=== PATIENT | female | born 1990 | race Caucasian/White ===

== ENCOUNTER 2019-11-07 20:52 | Inpatient (IN) | payer OTHER, SELFPAY ==
[2019-11-07 21:53] VITALS: BMI 23.8
[2019-11-07] MEDS: MISOPROSTOL 100 MCG TABLET PO (21:54)
[2019-11-07 21:56] LABS: Basophils Percent Auto 0.2 % (0.2-1.2); Eosinophils Absolute Auto 0.1 K/mm3 (0-0.3); Eosinophils Percent Auto 0.5 % (0-4.4); Hematocrit 35.4 % (37.0-47.0); Hemoglobin 11.7 g/dL (12.0-15.0); Immature Granulocyte Absolute 0.02 K/mm3 (0.00-0.031); Immature Granulocyte Percent A 0.2 % (0-0.5); Lymphocytes Absolute Auto 3.25 K/mm3 (0.9-3.2); Mean Corpuscular HGB Conc 33.1 g/dl (32-36); Mean Corpuscular Hemoglobin 28.7 pg (26-34); Mean Platelet Volume 10.7 fl (7.4-10.4); Monocytes Absolute Auto 0.5 K/mm3 (0.1-0.6); Monocytes Percent Auto 5.5 % (2.6-8.5); Neutrophils Absolute Auto 5.4 K/mm3 (1.3-6.7); Neutrophils Percent Auto 58.6 % (45.5-73.1); Platelet Count Result 237 k/mm3 (150-375); Red Blood Count 4.07 M/mm3 (4.2-5.4); Red Cell Distribution Width 13.2 % (11.5-14.5); White Blood Count 9.3 K/mm3 (4.5-10.0)
[2019-11-07 22:12] VITALS: BP 110/67; PULSE 71
[2019-11-07 22:30] VITALS: BP 110/71; PULSE 67
[2019-11-07 22:58] LABS: Free T4 Free Thyroxine 0.95 ng/mL (0.78-2.19)
[2019-11-07 23:00] VITALS: BP 109/59; PULSE 66
[2019-11-07 23:10] VITALS: TEMP 36.5
[2019-11-07 23:30] VITALS: BP 100/57; PULSE 63
[2019-11-08] VITALS (48 sets, daily range): BP systolic 76–132; BP diastolic 29–81; PULSE 59–91; TEMP 36.6–36.8
--- NOTE | 2019-11-08 00:14 | PM.IMHP ---
H&P: HPI History of Present Illness Chief complaint: Intrauterine demise Narrative: 29 y/o at 18w5d with complicated by likely monosomy X, cystic hygroma, hydrops. Today was seen for routine visit, but no FHR detected on ultrasound exam. IUFD diagnosed. She is here for induction of labor. LMP 06/29/2019 giving a due date of 04/04/20. Review of Systems Review of Systems: All systems reviewed & are unremarkable except as noted in HPI and below PMFSH Past Medical History Medical History (Updated 11/08/19 @ 00:24 by Thai Cisse MD) depression Family History Family History (Updated 11/08/19 @ 00:21 by Thai Cisse MD) Father A[place] disease Social History Social History Smoking status: Never smoker Substance use: never Gender identity (if verbalized by the patient): Female Spiritual care concerns: No Comments Past OB: male weighing 7#14oz at term. 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 No history of STI or abnormal Pap. Meds Home Medications and Allergies Home Medications Medication Instructions Recorded Confirmed Type fluoxetine 10 mg PO DAILY 11/07/19 11/07/19 History Allergies Allergy/AdvReac Type Severity Reaction Status Date / Time No Known Allergies Allergy Unverified 01/02/17 15:42 Vital Signs Vital Signs - 24 hr 11/07/19 22:12 11/07/19 22:30 11/07/19 23:00 Temperature Pulse Rate 71 67 66 Blood Pressure 110/67 110/71 109/59 L 11/07/19 23:10 11/07/19 23:30 11/08/19 00:00 Temperature 36.5 C Pulse Rate 63 71 Blood Pressure 100/57 L 99/49 L Exam Const: Orientation/consciousness: patient oriented x3 Other: Well-developed, well-nourished female in no acute distress. Neck: Thyroid: thyroid normal Lymphatic: no lymphadenopathy noted (in neck, axilla or inguinal nodes) Resp: Effort & Inspection: normal respiratory effort Auscultation: clear to auscultation bilaterally Cardio: Rate: regular rate Rhythm: regular rhythm Heart sounds: S1 normal heart sound present and S2 normal heart sound present GI: Other: ABD: Soft, nontender, nondistended. Gravid. Uterine fundus below umbilicus. No guarding or rebound tenderness. No hepatosplenomegaly. : General: Yes no CVA tenderness Other: Cervix closed, thick. Back/Spine/Pelvis: Back: no CVA tenderness Skin: General skin exam: normal color and no rashes or lesions noted Neuro: General: patient oriented x3 Extrem: Other: Extremities: nontender with no edema Psych: Mental Status: mental status grossly normal Affect: normal affect H&P: Results Labs Labs: Short CBC 11/07/19 Range/Units 21:49 WBC 9.3 (4.5-10.0) K/mm3 Hgb 11.7 L (12.0-15.0) g/dL Hct 35.4 L (37.0-47.0) % Plt Count 237 (150-375) k/mm3 Assessment and Plan Assessment and plan (1) Depression affecting : Code(s): O99.340 - Other mental disorders complicating , unspecified trimester; F32.9 - Major depressive disorder, single episode, unspecified Status: Acute (2) anomaly: Status: Acute (3) IUFD at less than 20 weeks of gestation: Code(s): O02.1 - Missed Status: Acute Assessment and Plan: Have offered expectant management vs induction of labor. Reviewed risks / benefits / alternatives in detail. She would like to proceed with induction. Plan misoprostol. (4) Hydrops fetalis in second trimester: Code(s): O36.22X0 - Maternal care for hydrops fetalis, second trimester, not applicable or unspecified Status: Acute (5) cystic hygroma: Status: Acute
[2019-11-08] MEDS: MISOPROSTOL 100 MCG TABLET PO ×2 (03:33→09:36)
[2019-11-08 06:58] LABS: Rapid Plasma Reagin Non-Reactive (NonReactive)
[2019-11-08] MEDS: MISOPROSTOL 100 MCG TABLET XX (13:53)
--- NOTE | 2019-11-08 14:23 | PM.OBPNLAB ---
Pain Control Date/time seen: 11/08/19 1320 Comments: Starting to feel some cramping. Pelvic Exam Dilation (cm): 2 Effacement (%): 50 station: -2 Comments: AROM with brown-colored fluid. Assessment and Plan Comments: Continue misoprostol
[2019-11-08] MEDS: LACTATED RINGERS 1,000 ML 125 ML IV CONT (18:34)
[2019-11-08] MEDS: OXYTOCIN 30 UNITS/NS 500 ML 30 UNITS/500 ML BAG 125 UNITS IV CONT (18:34)
--- NOTE | 2019-11-08 19:31 | PM.OBPRVD ---
OB - Delivery Note Procedure Delivery date: 11/08/19 Procedure: Induction of labor with 18 week IUFD Spontaneous delivery of placenta Bedside ultrasound exam to confirm complete delivery of placenta Induction method: per misoprostol protocol Route of delivery: Laceration description: None Estimated blood loss (mL): 100 Anesthesia type: None Disposition: PACU Complications: None Narrative: 29 y/o at 18 5/7 weeks gestation with IUFD, probable monosomy X, who presented to the hospital for induction of labor. Misoprostol was administered vaginally. Amniotomy was performed with return of brown fluid. Her labor progressed and she delivered vaginally. The stillborn infant was globally edematous with an apparent cystic hygroma. The cord was clamped and cut. The was handed off the field. Weight was 122g. The placenta delivered spontaneously and appeared to be intact. Bedside ultrasound exam performed transabdominally by me confirmed an empty endometrial cavity. There were no lacerations. Needle and instrument counts were correct. The patient was taken to recovery room in stable condition. Baby Date of : 11/08/19 Time of : 18:49 Weeks of gestation at delivery: 18 gender: Female Weight (ounces): 4 Placenta delivery description: Spontaneous score one minute: 0 score five minutes: 0
--- NOTE | 2019-11-08 19:38 | PM.OBDSVD ---
DS: Diagnosis Admitting Diagnosis Admitting Diagnosis: IUFD at 18 weeks with likely monosomy X. Discharge Diagnosis (1) cystic hygroma: Status: Acute (2) anomaly: Status: Acute (3) IUFD at less than 20 weeks of gestation: Code(s): O02.1 - Missed Status: Acute (4) Hydrops fetalis in second trimester: Code(s): O36.22X0 - Maternal care for hydrops fetalis, second trimester, not applicable or unspecified Status: Acute OB - DS: Summary OB Procedures : None OB Procedures Intrapartum: Spontaneous Vag Delivery OB Procedures: : None Time Spent with Patient Time attestation: Total time spent providing and/or coordinating discharge services: DS: Data Data Completed and Pending Labs on day of discharge: Labs from last 24 hours 11/07/19 11/07/19 11/07/19 21:49 21:49 21:49 WBC RBC Hgb Hct MCV MCH MCHC RDW Plt Count MPV Immature Gran % (Auto) Neut % (Auto) Lymph % (Auto) [place] % (Auto) Eos % (Auto) Baso % (Auto) Lymph # (Auto) [place] # (Auto) Eos # (Auto) Baso # (Auto) Abs Immat Gran (auto) Absolute Neuts (auto) Absolute Nucleated RBC Nucleated RBC % LA PTT Screen dRVVT Screen dRVVT Additional Test Lupus Anticoag Interp TSH Free T4 Beta-2-GPI IgG Ab Pending Beta-2-GPI IgA Ab Pending Beta-2-GPI IgM Ab Pending Anti-Cardiolipin IgG Ab Anti-Cardiolipin IgA Ab Anti-Cardiolipin IgM Ab RPR Non-reactive CMV IgG Ab Pending CMV IgM Ab Pending Blood Type B Positive KB Hemoglobin Negative 11/07/19 11/07/19 11/07/19 21:49 21:49 21:49 WBC RBC Hgb Hct MCV MCH MCHC RDW Plt Count MPV Immature Gran % (Auto) Neut % (Auto) Lymph % (Auto) [place] % (Auto) Eos % (Auto) Baso % (Auto) Lymph # (Auto) [place] # (Auto) Eos # (Auto) Baso # (Auto) Abs Immat Gran (auto) Absolute Neuts (auto) Absolute Nucleated RBC Nucleated RBC % LA PTT Screen dRVVT Screen dRVVT Additional Test Lupus Anticoag Interp TSH 2.490 Free T4 0.95 Beta-2-GPI IgG Ab Beta-2-GPI IgA Ab Beta-2-GPI IgM Ab Anti-Cardiolipin IgG Ab Pending Anti-Cardiolipin IgA Ab Pending Anti-Cardiolipin IgM Ab Pending RPR CMV IgG Ab CMV IgM Ab Blood Type KB Hemoglobin 11/07/19 11/07/19 21:49 21:49 WBC 9.3 RBC 4.07 L Hgb 11.7 L Hct 35.4 L MCV 87.0 MCH 28.7 MCHC 33.1 RDW 13.2 Plt Count 237 MPV 10.7 H Immature Gran % (Auto) 0.2 Neut % (Auto) 58.6 Lymph % (Auto) 35.0 [place] % (Auto) 5.5 Eos % (Auto) 0.5 Baso % (Auto) 0.2 Lymph # (Auto) 3.25 H [place] # (Auto) 0.5 Eos # (Auto) 0.1 Baso # (Auto) 0.0 Abs Immat Gran (auto) 0.02 Absolute Neuts (auto) 5.4 Absolute Nucleated RBC 0.0 Nucleated RBC % 0.0 LA PTT Screen Pending dRVVT Screen Pending dRVVT Additional Test Pending Lupus Anticoag Interp Pending TSH Free T4 Beta-2-GPI IgG Ab Beta-2-GPI IgA Ab Beta-2-GPI IgM Ab Anti-Cardiolipin IgG Ab Anti-Cardiolipin IgA Ab Anti-Cardiolipin IgM Ab RPR CMV IgG Ab CMV IgM Ab Blood Type KB Hemoglobin Discharge Plan Discharge Attending physician on discharge: Thai Cisse Discharging Clinician: Thai Cisse Patient Disposition: Home, Self-Care Activity: pelvic rest Diet: regular Discharge Instructions: Call or return if temperature above 100.4? F, increased abdominal pain, increased vaginal bleeding or any new problems. Stand Alone Forms: General Discharge Information Follow-up/Referrals: Thai Cisse MD [Physician] - (2 weeks) Discharge Medications: New ibuprofen 600 mg tablet 600 mg PO Q6H PRN (Reason: cramps) Qty: 30 RF: 0 zolpidem [Ambien] 5 mg tablet 5 mg PO HS PRN (Reason:
[2019-11-08] MEDS: IBUPROFEN 600 MG TABLET PO (20:13)
[2019-11-11 04:51] LABS: Anti Cardio Antibody IgM <12 MPL (<=12); Anti Cardiolipin Antibody IgA <11 APL (<=11); Anti Cardiolipin Antibody IgG <14 GPL (<=14)
[2019-11-11 14:04] LABS: CMV IgG Antibody <0.60 U/mL (<0.60)
[2019-11-14 09:09] LABS: CMV IgM Antibody <30.00 AU/mL (<30.00)
== END 2019-11-08 22:15 | disposition home or self-care (01) | DRG 779 ==
PROVIDERS: Admitting Provider Obstetrics & Gynecology; PCP Family Medicine; Visit Provider Obstetrics & Gynecology
DX: O02.1 Missed abortion (principal); Z3A.18 18 weeks gestation of pregnancy; O36.22X0 Maternal care for hydrops fetalis, second trimester, not applicable or unspecified; O35.8XX0 Maternal care for other (suspected) fetal abnormality and damage, not applicable or unspecified; O35.1XX0 Maternal care for (suspected) chromosomal abnormality in fetus, not applicable or unspecified; O99.344 Other mental disorders complicating childbirth; F32.9 Major depressive disorder, single episode, unspecified
CPT/HCPCS: 36415; 84439; 84443; 85025; 85460; 85613; 85730; 86146; 86147; 86592; 86644; 86645; 86900; 86901; 88305; 88307; A9270; J2590; J3010; J7120

== ENCOUNTER 2020-09-27 14:52 | Outpatient (RCR) | payer OTHER, SELFPAY ==
[2020-09-11 16:27] VITALS: BP 114/72; PULSE 85
[2020-09-27 15:19] VITALS: BP 121/80; PULSE 92
== END 2020-10-04 08:10 | disposition home or self-care (01) ==
LOC: ANHOBOP 14:52
PROVIDERS: PCP Family Medicine; Visit Provider Obstetrics & Gynecology
DX: O35.8XX0 Maternal care for other (suspected) fetal abnormality and damage, not applicable or unspecified (principal); Z3A.36 36 weeks gestation of pregnancy; Z3A.38 38 weeks gestation of pregnancy
CPT/HCPCS: 59025

== ENCOUNTER 2020-09-30 01:56 | Inpatient (IN) | payer OTHER, SELFPAY ==
[2020-09-30] VITALS (40 sets, daily range): BP systolic 80–144; BP diastolic 47–95; PULSE 70–113; RESP 16–18; TEMP 36.4–37.1; O2SAT 97–100; BMI 27.5
--- NOTE | 2020-09-30 02:34 | LDADM ---
This patient, Marisabel Levine, was admitted to Labor/Delivery/Recovery 104 on 09/30/20 at 01:56. Plans for labor, pain management and were discussed with patient. Patient/family oriented to hospital policies and general routines including ID bracelet, bed and alarms, visiting hours, pain management, procedures, bathroom and other care routines, personal items, smoking policy, room service/diet and guest tray routines, security routines, and visiting hours. Patient/Family are encouraged to report perceived risks to care and to ask questions if they do not understand what they are told or what they should do. See OBIX for further documentation.
[2020-09-30 02:37] LABS: Basophils Percent Auto 0.2 % (0.2-1.2); Eosinophils Percent Auto 0.2 % (0-4.4); Hematocrit 35.7 % (37.0-47.0); Hemoglobin 11.5 g/dL (12.0-15.0); Immature Granulocyte Percent A 0.6 % (0-0.5); Lymphocytes Percent Auto 20.7 % (18.3-44.2); Mean Corpuscular HGB Conc 32.2 g/dl (32-36); Mean Corpuscular Hemoglobin 28.1 pg (26-34); Mean Corpuscular Volume 87.3 fl (80-100); Monocytes Absolute Auto 0.9 K/mm3 (0.1-0.6); Monocytes Percent Auto 5.2 % (2.6-8.5); Neutrophils Percent Auto 73.1 % (45.5-73.1); Platelet Count Result 294 k/mm3 (150-375); Red Blood Count 4.09 M/mm3 (4.2-5.4); Red Cell Distribution Width 14.6 % (11.5-14.5); White Blood Count 16.4 K/mm3 (4.5-10.0)
--- NOTE | 2020-09-30 03:04 | WPDANESEPPF ---
Anes - Initial Pre Proc Eval Procedure: labor epidural Date/Time: 09/30/20 03:04 Surgeon: Thai Cisse MD Pre Op Diagnosis: labor pain Pre Op Diagnosis: CTX Patient Data Age: 30 Gender: F Height: 1.65 m Weight: 75 kg Last Vital Signs Pulse 89 09/30/20 03:03 BP 129/81 09/30/20 03:03 Pulse Ox 100 09/30/20 03:02 Allergies Allergy/AdvReac Type Severity Reaction Status Date / Time No Known Allergies Allergy Verified 09/11/20 15:54 Home Medications Medication Instructions Recorded Confirmed Type fluoxetine 10 mg PO DAILY 11/07/19 09/27/20 History prenat.vits,cherry,awy-vbap-rdqqd 1 tablet PO HS 09/11/20 09/27/20 History [ #2] Laboratory Tests 09/30/20 09/30/20 02:28 02:28 WBC 16.4 K/mm3 H K/mm3 (4.5-10.0) RBC 4.09 M/mm3 L M/mm3 (4.2-5.4) Hgb 11.5 g/dL L g/dL (12.0-15.0) Hct 35.7 % L % (37.0-47.0) MCV 87.3 fl fl (80-100) MCH 28.1 pg pg (26-34) MCHC 32.2 g/dl g/dl (32-36) RDW 14.6 % H % (11.5-14.5) Plt Count 294 k/mm3 k/mm3 (150-375) MPV 12.0 fl H fl (7.4-10.4) Immature Gran % (Auto) 0.6 % H % (0-0.5) Neut % (Auto) 73.1 % % (45.5-73.1) Lymph % (Auto) 20.7 % % (18.3-44.2) [place] % (Auto) 5.2 % % (2.6-8.5) Eos % (Auto) 0.2 % % (0-4.4) Baso % (Auto) 0.2 % % (0.2-1.2) Lymph # (Auto) 3.40 K/mm3 H K/mm3 (0.9-3.2) [place] # (Auto) 0.9 K/mm3 H K/mm3 (0.1-0.6) Eos # (Auto) 0.0 K/mm3 K/mm3 (0-0.3) Baso # (Auto) 0.0 K/mm3 K/mm3 (0.0-0.1) Abs Immat Gran (auto) 0.10 K/mm3 H K/mm3 (0.00-0.031) Absolute Neuts (auto) 12.0 K/mm3 H K/mm3 (1.3-6.7) Absolute Nucleated RBC 0.0 K/mm3 K/mm3 (0.0-0.012) Nucleated RBC % 0.0 % % (0.0-0.2) RPR Pending Patient hx anesthesia problems: none Family hx anesthesia problems: none [facility] Past Medical History Medical History (Updated 11/08/19 @ 00:24 by Thai Cisse MD) depression Family History Family History Father Hendricks disease Social History Social History Smoking status: Never smoker Substance use: never Gender identity (if verbalized by the patient): Female Spiritual care concerns: No Anes - Eval Final PreProcedure Day of Procedure 09/30/20 03:04 Patient weight: overweight ASA classification: II Anesthesia type and monitoring: regional epidural Informed Consent: The patient's anesthetic plan and its attendant risks and benefits were discussed with the patient/family/POA. Questions were solicited and answers provided to the satisfaction of the patient/family/POA.
[2020-09-30] MEDS: ONDANSETRON INJ 4 MG/2 ML VIAL IV PUSH (03:35)
--- NOTE | 2020-09-30 03:37 | WPDOBADMIT ---
Obstetrics - Admit Note Admission Note: record reviewed. Additions to the history and/or subsequent changes in the physical findings follow. 30 y/o at 39 1/7 weeks here with contractions. Now comfortable with epidural. GBS neg. AVSS NST reactive TOCO: contractions every 2-4 min ABD soft, nontender, gravid, vertex EXT nontender Cervix 6-7/80/-2. AROM with thinly meconium-stained fluid. Vertex A: IUP at term with labor. P: Anticipate . Thin meconium. Peds aware. Anticipate .
--- NOTE | 2020-09-30 05:07 | PM.OBPNLAB ---
Pain Control Date/time seen: 09/30/20 05:07 Comments: Comfortable. Pelvic Exam Dilation (cm): 10 Effacement (%): 100 station: +1 Contractions Contraction frequency: 3 Contraction pattern: Regular Status status: Category l Assessment and Plan Comments: Begin pushing.
--- NOTE | 2020-09-30 05:33 | P.PCNOB_ITS ---
OB - Delivery Note Procedure Delivery date: 09/30/20 Procedure: Induction method: none Delivery augmentation: rupture of membranes Delivery monitor: external FHT and external uterine Route of delivery: Laceration Description: Perineal - 2nd Degree Delivery repair: vicryl (3-0) Specimen: Yes (cord blood) Quantitative Blood Loss (ml): 240 Anesthesia type: Epidural Disposition: PACU Complications: None Narrative: 30 y/o at 39 1/7 weeks gestation who presented to the hospital with contractions. Cervix found to be 7 cm dilated. Labor was diagnosed. Amniotomy was performed with return of thinly meconium-stained fluid. She received an epidural for pain control. Her labor progressed and her cervix dilated completely. She pushed with good effort and delivered the infant's head to the perineum, followed by the body. The nose and mouth were bulb suctioned. After a delay, the cord was clamped and cut. The infant was handed off the field. Cord blood was collected. The placenta delivered spontaneously and was grossly normal in appearance. The usual 3 vessel cord was noted. A second degree midline perineal laceration was sustained. This was reapproximated using 3 0 Vicryl in the usual layered fashion. Excellent hemostasis resulted as did excellent reapproximation of the normal anatomy. Needle and instrument counts were correct. The patient was taken to recovery room in stable condition. The infant went to the nursery in stable condition. I was present and scrubbed for the entire delivery. [place] Baby Date of : 09/30/20 Time of : 05:12 Weeks of gestation at delivery: 39 Infant gender: Female Weight (pounds): 7 Weight (ounces): 7 presentation: vertex position: Right Occiput Anterior Placenta delivery description: Spontaneous and Normal Configuration cord vessel description: 3 Vessels and Delayed Cord Clamping score one minute: 9 score five minutes: 9
--- NOTE | 2020-09-30 05:35 | PM.OBDSVD ---
DS: Admitting Diagnosis Admitting Diagnosis Admitting Diagnosis: IUP at 39 1/7 weeks Labor DS: Discharge Diagnosis Discharge Diagnosis (1) (normal spontaneous vaginal delivery): Code(s): O80 - Encounter for full-term uncomplicated delivery Status: Acute OB - DS: Summary OB Procedures : None OB Procedures Intrapartum: Spontaneous Vag Delivery OB Procedures: : None Time Spent with Patient Time attestation: Total time spent providing and/or coordinating discharge services: DS: Data Data Completed and Pending Labs on day of discharge: Labs from last 24 hours 09/30/20 09/30/20 09/30/20 02:28 02:28 02:28 WBC 16.4 H RBC 4.09 L Hgb 11.5 L Hct 35.7 L MCV 87.3 MCH 28.1 MCHC 32.2 RDW 14.6 H Plt Count 294 MPV 12.0 H Immature Gran % (Auto) 0.6 H Neut % (Auto) 73.1 Lymph % (Auto) 20.7 [place] % (Auto) 5.2 Eos % (Auto) 0.2 Baso % (Auto) 0.2 Lymph # (Auto) 3.40 H [place] # (Auto) 0.9 H Eos # (Auto) 0.0 Baso # (Auto) 0.0 Abs Immat Gran (auto) 0.10 H Absolute Neuts (auto) 12.0 H Absolute Nucleated RBC 0.0 Nucleated RBC % 0.0 RPR Pending Blood Type B Positive Antibody Screen Negative Discharge Plan Discharge Attending physician on discharge: Thai Cisse Discharging Clinician: Thai Cisse Patient Disposition: Home, Self-Care Activity: pelvic rest Diet: regular Discharge Instructions: Call or return if temperature above 100.4? F, increased abdominal pain, increased vaginal bleeding or any new problems. Education: Mom and Baby Guide Given to: Mother Follow-Up: Call your delivering provider's office for an appointment to be seen in: 4 Weeks Mom and baby should come to the [facility] for the follow-up appointment. Appointment Date/Time: Friday, October 02, 2020 at 9:00 am What to expect at your follow-up visit: Blood Pressure Check Physical Assessment Call [phone] if you are unable to keep your appointment time. BREAST CARE: * For engorgement discomfort: Breast Feeding: * Apply warm moist washcloths * Express milk as needed to relieve engorgement * Wear loose clothing * For sore nipples: * Identify correct latch-on * Apply warm moist washcloths before and after nursing * Air dry nipples after nursing * May apply Lansinoh cream to nipples EPISIOTOMY/PERINEAL CARE: * Until bleeding stops, use your henry bottle after urinating * Change your pad frequently throughout the day * You may take sitz baths several times a day (fill your bathtub with warm water and soak for 20 minutes.) Do NOT bathe in the water * No tub baths until seen by your physician - You may shower ACTIVITY: * Rest as much as possible. * Do not exercise or lift anything heavier than your baby (such as laundry or other children.) * Avoid stairs or driving as much as possible. * Do not put anything into the vagina. No douching, tampons, or sexual activity until seen by physician. NOTIFY PHYSICIAN IF YOU HAVE ANY QUESTIONS OR IF ANY OF THE FOLLOWING SYMPTOMS OCCUR: * If your episiotomy becomes red, swollen, or more painful than what you have experienced in the hospital. * If your vaginal bleeding becomes foul smelling. * If your vaginal bleeding becomes more heavy than a period or if your bleeding changes from pink to bright red. However, you may pass an occasional walnut-sized clot once or twice for the first week . * If you experience a sharp, shooting pain in you calves. * If you discover a hard, reddened area on your breast or if you experience flu-like symptoms. DIET: * Eat regular, well-balanced meals. * Drink plenty of fluids daily. If , drink to thirst. Stand Alone Forms: General Discharge Information Follow-up/Referrals: Thai Cisse MD [Physician] -
[2020-09-30] MEDS: OXYTOCIN 30 UNITS/NS 500 ML 30 UNITS/500 ML BAG 125 UNITS IV CONT (06:10)
--- NOTE | 2020-09-30 08:00 | OBPPTRN ---
Patient transferred to post room # 281 via wheelchair. Support person present. Oriented to unit, room, information board, rooming in, admission packet and security measures. Welcome packet reviewed and discussed.Patient verbalizes understanding.
--- NOTE | 2020-09-30 11:00 | PC.NURSE ---
PT and spouse were recipients of the instructions regarding and maternal care . NO barriers to learning identified. One to one discussion and the mom baby care guide book were used . PT verbalized understanding of such care.
[2020-09-30] MEDS: DOCUSATE SODIUM 100 MG CAPSULE PO ×2 (11:18→17:33)
[2020-09-30] MEDS: MULTIVIT/MIN/PREN/FOL AC/IRON TABLET 1 TAB PO (11:18)
[2020-09-30] MEDS: ACETAMINOPHEN 325 MG TABLET 650 MG PO ×2 (11:18→17:32)
[2020-09-30] MEDS: IBUPROFEN 600 MG TABLET PO ×2 (11:19→17:33)
[2020-09-30] MEDS: WITCH HAZEL 40 PADS 1 PAD TOPICAL (11:21)
[2020-09-30] MEDS: LANOLIN (LANSINOH) 7.5 GM CREAM 1 APPLIC TOPICAL (11:21)
[2020-09-30] MEDS: BENZOCAINE 20% AER SPR (*SP) 56 GM CAN 1 SPRAY TOPICAL (11:21)
[2020-09-30] MEDS: FLUoxetine HCL 10 MG CAPSULE PO (17:33)
[2020-10-01] MEDS: IBUPROFEN 600 MG TABLET PO ×2 (00:05→07:54)
[2020-10-01 05:05] LABS: Hematocrit 31.3 % (37.0-47.0); Hemoglobin 10.1 g/dL (12.0-15.0)
[2020-10-01 07:17] LABS: Rapid Plasma Reagin Non-Reactive (NonReactive)
--- NOTE | 2020-10-01 07:30 | PC.NURSE ---
Mother called out for assist with feeding. Consulted with patient, mother reports has fed well since . Mother has slight nipple discomfort with latch during first part of the feeding that quickly resolves. Reviewed nipple care of lanolin, warm compresses several times per day. Mother reports first child 4 years ago. Reviewed feeding cues, frequencies, duration of feedings, feeding elimination flow sheet, and signs of adequate intake. Demonstrated stimulation techniques to wake infant for feeding. Assisted with infant to breast. Reviewed positioning/alignment in cross cradle, holding breast in U hold and guided asymmetrical latch on. Infant was able to latch within a few attempts. Infant nursed eagerly, with steady draws and frequent swallowing noted. Reviewed signs of a correct latch, effective nursing and suck swallow ratio. Infant was able to maintain latch. Mother reported tenderness at times, had slipped to shallow latch. Demonstrated how to adjust latch more deeply while feeding. Mother quickly reports she can feel infant is latched more deeply and has minimal tenderness. Suggested to stimulate while feeding to keep infant awake and nursing effectively for increased stimulation and increased intake. Instructed mother to call out for RN assistance if she is unable to latch for feeding or she has discomfort with nursing. Mother is planning on discharge later this day. Mother is feeding as required and waking infant to feed if needed. has had at least 8 effective feedings in the past 24 hours, and is currently meeting outcomes for weight, output, jaundice and feeding frequencies. Mother states she feels confident to continue effective at home. Reviewed transition to breast milk, signs of adequate intake, and engorgement/relief. Instructed to call ICP if intake/output less than required. Reviewed regular medications mother is taking. Information provided per [employer]. Reviewed community resources on the [facility] website and in the Mom/Baby guide. Information on outpatient services provided. Mother has no further questions at this time.
[2020-10-01] MEDS: MULTIVIT/MIN/PREN/FOL AC/IRON TABLET 1 TAB PO (07:55)
[2020-10-01] MEDS: DOCUSATE SODIUM 100 MG CAPSULE PO (07:55)
[2020-10-01] MEDS: FLUoxetine HCL 20 MG CAPSULE PO (07:55)
[2020-10-01] MEDS: BENZOCAINE 20% AER SPR (*SP) 56 GM CAN 1 SPRAY TOPICAL (07:56)
[2020-10-01] MEDS: LANOLIN (LANSINOH) 7.5 GM CREAM 1 APPLIC TOPICAL (07:56)
[2020-10-01] MEDS: WITCH HAZEL 40 PADS 1 PAD TOPICAL (07:56)
[2020-10-01 08:00] VITALS: BP 114/74; PULSE 90; RESP 18; TEMP 37
--- NOTE | 2020-10-01 08:28 | WPDANLDPN2 ---
Anes-Prog Note L&D Date/Time: 10/01/20 08:28 Comfortable throughout: labor and delivery Neuraxial method: epidural Epidural/Spinal procedure site: clean & non-tender Neuro status: Neuro function grossly intact. Cardiovascular status: normal Respiratory status: normal Airway patency: baseline Mental status: baseline Post-Op hydration status: normal Vital Signs: Last Vital Signs Temp 36.4 C 09/30/20 23:38 Pulse 72 09/30/20 23:38 Resp 16 09/30/20 23:38 BP 134/69 09/30/20 23:38 Pulse Ox 97 09/30/20 17:00 Pain score (VAS): 0 Post-procedural complaints: none Patient feedback: Patient satisfied with anesthetic care.
--- NOTE | 2020-10-01 09:44 | PC.NURSE ---
Patient was given the opportunity to view the discharge video Mother & Baby Care, The First Two Weeks and to ask questions. Patient declined viewing the video and has been given the mother/baby guide for home reference.
--- NOTE | 2020-10-01 09:45 | PC.NURSE ---
Self care and infant care discharge instructions given including follow up visit date and time. Mother verbalized understanding. No questions or concerns voiced. Very pleasant and cooperative. at side.
--- NOTE | 2020-10-01 12:02 | PM.OBPNVD ---
OB - PN: Subj Subjective Date/time seen: 10/01/20 12:02 Narrative: Pain OK. Mood good on fluoxetine 20 mg daily, plans to continue it. Would like to go home. OB - PN: Obj Data Labs CBC & Chem 7: 10/01/20 04:54 Labs: Laboratory Results - last 24 hr 09/30/20 10/01/20 02:28 04:54 Hgb 10.1 L Hct 31.3 L RPR Non-reactive OB - PN A/P Plan Comments: A: PPD#1, doing well. P: Home to f/u 6 weeks. Exam Psych: Other: AVSS ABD soft, nontender, fundus firm EXT nontender
[2020-10-02 08:54] VITALS: BP 116/72; PULSE 78; RESP 16; TEMP 37.1; O2SAT 100
== END 2020-10-01 13:42 | disposition home or self-care (01) | DRG 807 ==
LOC: ANHLDR 05:36 → ANHOB2 08:25
PROVIDERS: Admitting Provider Obstetrics & Gynecology; PCP Family Medicine; Visit Provider Obstetrics & Gynecology
DX: O77.0 Labor and delivery complicated by meconium in amniotic fluid (principal); Z37.0 Single live birth; Z3A.39 39 weeks gestation of pregnancy; O70.1 Second degree perineal laceration during delivery
CPT/HCPCS: 36415; 85014; 85018; 85025; 86592; 86850; 86900; 86901; A9270; J2405; J2590; J2795

== ENCOUNTER 2020-10-04 11:37 | Outpatient (RCR) | payer OTHER, SELFPAY ==
--- NOTE | 2020-10-04 12:13 | PC.NURSE ---
IN 1105 OUT 1150 HISTORY: Pt. delivered at [facility] at 39 weeks. had no complications after delivery. Mother had no complications after delivery. Infant is now 4 days old. appears to be well cared for. will be seen by ICP as scheduled at 1 week of life. Mother reports: Pain with feeding, bilaterally cracked nipples. Mother states she had slight tenderness at hospital that quickly increased to pain once her milk came in. Mother wishes: Latch without pain and to heal nipples. Currently at 4 wets per day and 4 yellow watery seedy stools per day. weight: 7#7 Discharge weight: Last Weight: 7#1 at follow up OBSERVATION: Both nipples have excoriation and cracks to center of nipple from possible shallow latch. Mother is very engorged, leaking milk. Demonstrated self expression to soften breast to assist infant with deep latch and maintaining deep latch. Large amounts of milk easily expressed by mother. Mother puts to breast using cradle positioning, allowing to self latch with a shallow latch. Mother quickly reports discomfort breaking latch. Nipple is misshaped with rounded top an flat bottom and crease to center. Reviewed deep latch and the importance for increased intake and her comfort. Assisted with to breast. Reviewed positioning/alignment in cross cradle, holding breast in U hold and guided asymmetrical latch on. Discussed stimulating infant to open and bringing infant to breast quickly with wide open mouth. was able to latch correctly. Infant nursed eagerly, with steady draws and frequent swallowing noted. Reviewed signs of a correct latch, effective nursing and suck swallow ratio. A few times during 15 minutes of feeding had coughing and gulping as from heavy milk flow, tending to pull pack during the feeding. Suggested mother lean to right to bring head up and assist with swallowing. was able to maintain latch without discomfort to mother. Nipple care reviewed of warm moist compresses several time per day, lanolin and gel pads if she chooses. Stressed the importance of softening before latch and assisting infant with maintaining deep latch during the entire feeding. PLAN: Mother will follow above feeding plan using techniques for deeper latch. Mother will call with further questions or concerns. Follow up phone call scheduled for October 05, 2020
== END 2020-12-24 08:16 | disposition home or self-care (01) ==
LOC: ANHOBOP 11:37
PROVIDERS: PCP Family Medicine; Visit Provider Family Medicine
DX: Z39.1 Encounter for care and examination of lactating mother (principal)
CPT/HCPCS: 99212; G0463